=== PATIENT | female | born 2000 | race Caucasian/White ===

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

== ENCOUNTER → 2021-02-20 | Outpatient (REF) | LOC: M LABSMTC 09:01 | PROVIDERS: ATTEND Pediatrics | DX: Z20.822 Contact with and (suspected) exposure to COVID-19 (principal) ==

== ENCOUNTER → 2021-03-20 | Outpatient (CLI) | payer OTHER ==
[2021-03-20 12:29] LABS: BASO # 0.1 10^3/uL (0.0-0.2); EOS # 0.1 10^3/uL (0.0-0.5); EOS % 0.9 % (0.0-3.0); HEMATOCRIT 40.8 % (36.0-47.0); HEMOGLOBIN 13.1 g/dl (12.0-15.5); LYMPH # 2.2 10^3/uL (1.5-5.0); LYMPH % 30.7 % (24.0-44.0); MEAN CORPUSCULAR HEMOGLOBIN 28.9 pg (27.0-33.0); MEAN CORPUSCULAR HGB CONC 32.1 g/dl (32.0-36.5); MEAN CORPUSCULAR VOLUME 89.9 fl (80.0-96.0); MONO # 0.6 10^3/uL (0.0-0.8); MONO % 8.4 % (2.0-8.0); NEUTROPHILS # 4.1 10^3/uL (1.5-8.5); NEUTROPHILS % 58.6 % (36.0-66.0); PLATELET COUNT, AUTOMATED 324 10^3/uL (150-450); RED BLOOD COUNT 4.54 10^6/uL (4.00-5.40)
[2021-03-20 12:59] LABS: FREE T4 0.96 NG/DL (0.78-1.33); THYROID STIMULATING HORMONE 1.74 uIU/ML (0.463-3.98)
== END ==
LOC: M LAB 11:37
PROVIDERS: ATTEND Specialist
DX: F41.9 Anxiety disorder, unspecified (principal)